=== PATIENT | male | born 1980 | race Caucasian/White ===

== ENCOUNTER → 2017-08-22 | Emergency (ER) | payer OTHER ==
[~2017-08-22] VITALS: Ht 175.3 cm; Wt 86.2 kg
[~2017-08-22] MED LIST: DIAZEPAM 5 MG TAB ONE; DIAZEPAM 5 MG TAB PO STA; KETOROLAC TROMETHAMINE 60 MG/2 ML VIAL IM ONE; KETOROLAC TROMETHAMINE 60 MG/2 ML VIAL ONE
--- NOTE | 2017-08-23 01:23 | Diagnostic Imaging Report ---
SP LUMBAR, COMPLETE MIN 4VW Comparison: None Clinical history: Lower back pain status post injury Findings: There are 5 lumbar type vertebral bodies. Vertebral body height and disc spaces are preserved. Mild L5-S1 facet arthrosis. Alignment is intact. Impression: No acute bony abnormality Signed by: Dr Chanda Roth MD on 08/23/2017 1:16 AM
== END | disposition home or self-care (01) ==
LOC: ER 23:24
DX: M54.5 Low back pain (principal); S39.012A Strain of muscle, fascia and tendon of lower back, initial encounter; Y93.89 Activity, other specified